=== PATIENT | male | born 1940 | race African-American/Black ===

== ENCOUNTER 2021-06-26 09:26 | Emergency (ER) | payer OTHER, MEDICAID ==
[~2021-06-26] VITALS: Ht 190.5 cm; Wt 75.0 kg
[2021-06-26 10:07] LABS: BASOPHILS % 0.6 % (0.0-2.0); EOSINOPHILS % 1.6 % (0.0-5.0); HEMATOCRIT. 40.2 % (42.0-52.0); HEMOGLOBIN. 13.8 g/dL (14.0-18.0); LYMPHOCYTES % 25.6 % (20.0-50.0); MEAN CORPUSCULAR HEMOGLOBIN 32.4 pg (28.0-32.0); MEAN CORPUSCULAR VOLUME 94.2 fL (80.0-94.0); MEAN PLATELET VOLUME 7.6 fl (7.4-10.4); MONOCYTES % 7.1 % (2.0-8.0); NEUTROPHILS % 65.1 % (40.0-76.0); PLATELET 181 x1000/uL (130-400); RED BLOOD CELL COUNT 4.27 mill/uL (4.7-6.1)
[2021-06-26 10:12] LABS: CHLORIDE 108 mEq/L (98-107)
[2021-06-26 10:27] LABS: PROTHROMBIN TIME 10.6 sec (9.6-11.0)
[2021-06-26] MEDS ORDERED: SIMETHICONE 80MG TABLET CHEW PO PRN (13:45)
[2021-06-26 13:59] LABS: CLARITY URINE CLEAR (CLEAR); COLOR URINE YELLOW (YELLOW); KETONES URINE NEGATIVE (NEGATIVE); LEUKOCYTE ESTERASE URINE NEGATIVE (NEGATIVE); NITRITE URINE NEGATIVE (NEGATIVE); OCCULT BLOOD URINE NEGATIVE (NEGATIVE); PROTEIN URINE NEGATIVE (NEGATIVE); SPECIFIC GRAVITY URINE 1.017 (1.005-1.030); UROBILINOGEN URINE 0.2 E.U./dL (0.2-1.0)
[2021-06-26] MEDS ORDERED: PANTOPRAZOLE 40MG DR TABLET PO SCH (14:00)
[2021-06-26 14:04] LABS: HEMATOCRIT 38.3 % (42.0-52.0); HEMOGLOBIN 13.3 g/dL (14.0-18.0)
[2021-06-26] MEDS ORDERED: *PATIENT'S OWN MEDICATION STORAGE XX SCH (14:45)
[2021-06-26] MEDS ORDERED: PHEN51CR24 TP (15:04)
[2021-06-26] MEDS ORDERED: PANT40SU MT (15:04)
[2021-06-26 15:30] VITALS: BP 130/70
== END 2021-06-26 16:55 | disposition home or self-care (01) ==
LOC: ER 09:26 → EDBEDREQ 11:58 → EDBEDREQTM 11:58 → CANRESERV 13:47 → ENRESERV 13:47 → ER 16:55 → CANBEDREQ 17:33
DX: K64.4 Residual hemorrhoidal skin tags (principal); D64.9 Anemia, unspecified; E86.0 Dehydration; I10 Essential (primary) hypertension; N40.0 Benign prostatic hyperplasia without lower urinary tract symptoms; F17.210 Nicotine dependence, cigarettes, uncomplicated; Z20.822 Contact with and (suspected) exposure to COVID-19; Z86.73 Personal history of transient ischemic attack (TIA), and cerebral infarction without residual deficits
CPT/HCPCS: 36415; 80053; 81003; 85014; 85018; 85025; 86850; 86900; 87426; 93005; 99285